=== PATIENT | male | born 1995 | race African-American/Black ===

== ENCOUNTER 2017-04-01 23:39 | Emergency (ER) | payer OTHER | END 2017-04-02 00:34 | disposition home or self-care (01) | LOC: M ED 23:39 | DX: S31.21XA Laceration without foreign body of penis, initial encounter (principal); X50.3XXA Overexertion from repetitive movements, initial encounter; Y92.89 Other specified places as the place of occurrence of the external cause; Y93.89 Activity, other specified | CPT/HCPCS: 99282 ==